=== PATIENT | male | born 1975 | race African-American/Black ===

== ENCOUNTER 2018-06-29 12:02 | Emergency (ER) | payer OTHER ==
--- OUTSIDE RECORDS SUMMARY | 2018-06-29 12:11 | XMS REPORT ---
:1975 External Reference #:[id number] Author Organization [facility] Address [address] [place] [address] [place] [address] Phone [phone] Care Team Providers Name Role Phone Kong Mcnulty III, MD Primary Care Physician Unavailable Payers Type Date Identification Numbers Payment Provider Subscriber Commercial Policy Number: [id number] Ru[employer] Camila Box III Medicaid PayID: [id number] [place] [id number] Advance Directives Type Date Description Status Comment Other Directive 06/04/2018 Health Care Proxy Current and Verified Problems Date Description Provider Status Onset: 09/27/2017 Tobacco user Bradford Rivas M.D. Active Onset: 09/27/2017 Low back pain Bradford Rvias M.D. Active Onset: 09/27/2017 Osteoarthritis of knee, unspecified Bradford Rivas M.D. Active Onset: 09/27/2017 Obesity Bradford Rivas M.D. Active Onset: 02/12/2018 Mild recurrent major depression Bradford Rivas M.D. Active Onset: 02/12/2018 Insomnia Bradford Rivas M.D. Active Onset: 03/05/2018 Knee pain Bradford Rivas M.D. Active Onset: 03/07/2018 Localized, primary osteoarthritis Lon Gonzalez MD Active Onset: 03/07/2018 Sciatica Lon Gonzalez MD Active Family History Date Family Member(s) Problem(s) Comments General Heart Disease Father Diabetes Type II Mother Hyperthyroidism Social History Type Date Description Comments Lives With Girlfriend Occupation Currently Working ETOH Use Denies alcohol use Smoking current smoker 1 ppd Exercise Type/Frequency Does not exercise Allergies, Adverse Reactions, Alerts Date Description Reaction Status Severity Comments 12/11/2013 NKDA active Medications Medication Date Status Form Strength Qnty SIG Indications Ordering Provider Sertraline HCL 06/04/20 Active Tablets 100mg 30tabs 1 by F33.0 Bradford 18 mouth Pachikara, every day M.D. Tramadol HCL 03/05/20 Active Tablets 50mg 20tabs 2 times a M25.561 [place] 18 day as Pachikara, needed M.D. Ibuprofen 02/13/20 Active Tablets 600mg 90tabs three M25.561 Bradford 18 times a Pachikara, day with M.D. food Sertraline HCL 02/13/20 Hx Tablets 50mg 30tabs 1 by F33.0 Bradford 18 - mouth Pachikara, 06/04/20 every day M.D. 18 [place] Hx Unknown - 06/03/20 18 Medications Administered in Office Medication Date Status Form Strength Qnty SIG Indications Ordering Provider Depomedrol Administered Injection Luzma 40MG 018 MOLLY Stern Immunizations CPT Code Status Date Vaccine Lot # [id number] Given 05/14/2018 Pneumonia Vaccine [id number] Vital Signs Date Vital Result Comment 06/11/2018 Height 70 inches 5'10" Heart Rate 68 /min BP Systolic 130 mmHg BP Diastolic 82 mmHg Respiratory Rate 18 /min Body Temperature 98.7 F Pain Level 7 06/04/2018 Height 70 inches 5'10" Weight 253.00 lb Heart Rate 84 /min BP Systolic 135 mmHg BP Diastolic 90 mmHg Pain Level 8 lower back, bilat knees O2 % BldC Oximetry 98 % BMI (Body Mass Index) 36.3 kg/m2 05/14/2018 Height 70 inches 5'10" Weight 253.00 lb Heart Rate 80 /min BP Systolic 140 mmHg BP Diastolic 90 mmHg O2 % BldC Oximetry 97 % BMI (Body Mass Index) 36.3 kg/m2 05/07/2018 Height 70 inches 5'10" Weight 260.00 lb Heart Rate 72 /min BP Systolic 142 mmHg BP Diastolic 80 mmHg Respiratory Rate 14 /min Pain Level 6 BMI (Body Mass Index) 37.3 kg/m2 03/07/2018 Height 70 inches 5'10" Weight 270.00 lb BP Systolic 124 mmHg BP Diastolic 81 mmHg Respiratory Rate 16 /min Pain Level 9 BMI (Body Mass Index) 38.7 kg/m2 03/05/2018 Height 70 inches 5'10" Weight 270.00 lb Heart Rate 88 /min BP Systolic 122 mmHg BP Diastolic 80 mmHg O2 % BldC Oximetry 96 % BMI (Body Mass Index) 38.7 kg/m2 02/12/2018 Weight 267.00 lb Heart Rate 78 /min BP Systolic 130 mmHg BP Diastolic 82 mmHg Body Temperature 97.9 F O2 % BldC Oximetry 98 % 09/27/2017 Height 70 inches 5'10" Weight 266.38 lb Heart Rate 81 /min BP Systolic 132 mmHg BP Diastolic 85 mmHg O2 % BldC Oximetry 97 % BMI (Body Mass Index) 38.2 kg/m2 12/11/2013 Height 70 inches 5'10" Weight 142.00 lb Heart Rate 76 /min BP Systolic 127 mmHg BP Diastolic 79 mmHg BMI (Body Mass Index) 20.4 kg/m2 Results Test Date Test Result H/L Range Note Comp Metabolic Panel 03/04/2018 Sodium 140 mmol/L 139-145 Potassium 4.6 mmol/L 3.5-5.0 Chloride 103 mmol/L 101-111 Co2 Carbon Dioxide 30 mmol/L 22-32 Anion Gap 7 mmol/L 2-11 Glucose 94 mg/dL 70-100 Blood Urea Nitrogen 18 mg/dL 6-24 Creatinine 1.07 mg/dL 0.67-1.17 BUN/Creatinine Ratio 16.8 8-20 Calcium 9.5 mg/dL 8.6-10.3 Total Protein 7.2 g/dL 6.4-8.9 Albumin 4.4 g/dL 3.2-5.2 Globulin 2.8 g/dL 2-4 Albumin/Globulin Ratio 1.6 1-3 Total Bilirubin 0.60 mg/dL 0.2-1.0 Alkaline Phosphatase 75 U/L 34-104 Alt 21 U/L 7-52 Ast 16 U/L 13-39 Egfr Non- 76.5 >60 Egfr 98.4 >60 1 Laboratory test finding 03/04/2018 TSH (Thyroid Stim Horm) 2.56 mcIU/mL 0.34-5.60 Lipid Profile 03/04/2018 Triglycerides 162 mg/dL 2 (Trig/Chol/HDL) Cholesterol 231 mg/dL 3 HDL Cholesterol 41.5 mg/dL 4 LDL Cholesterol 157 mg/dL 5 1 Because ethnic data is not always readily available, this report includes an eGFR for both -Americans and non- Americans. The National Kidney Disease Education Program (NKDEP) does not endorse the use of the MDRD equation for patients that are not between the ages of 18 and 70, are , have extremes of body size, muscle mass, or nutritional status, or are non- or non-. According to the National Kidney Foundation, irrespective of diagnosis, the stage of the disease is based on the level of kidney function: Stage Description GFR(mL/min/1.73 m(2)) 1 Kidney damage with normal or decreased GFR 90 2 Kidney damage with mild decrease in GFR 60-89 3 Moderate decrease in GFR 30-59 4 Severe decrease in GFR 15-29 5 Kidney failure <15 (or dialysis) 2 Desirable: <150 Borderline High: 150-199 High: 200-499 Very High: >500 3 Desirable: <200 Borderline High: 200-239 High: >239 4 Low: <40 Desirable: 40-60 High: >60 5 Desirable: <100 Near Optimal: 100-129 Borderline High: 130-159 High: 160-189 Very High: >189 Procedures Date CPT Code Description Status 03/07/2018 87193 Inject/Drain Joint/Bursa Major W/O US Completed Encounters Type Date Location Provider CPT E/M Dx Office Visit 06/04/2018 8:00a [facility] Bradford Rivas [address] F33.0 - [place] M25.561 Office Visit 05/14/2018 8:00a [facility] Internal Bradford Rivas M.D. 98295 F33.0 Medicine - [place] E66.9 Office Visit 05/07/2018 10:30a [facility] [place] [address] S83.241D Of Shyann Gonzalez MD M25.561 Office Visit 03/07/2018 8:45a [facility] Lon Gonzalez, 80129 M17.11 Shyann WHITE M54.41 Office Visit 03/05/2018 8:20a [facility] Hetal Rivas 53026 M25.561 Medicine - [place] F33.0 Office Visit 02/12/2018 8:40a [facility] Internal Bradford Rivas, 16094 M25.561 Medicine - [place] M54.5 F33.0 G47.00 F17.210 Z13.220 Office Visit 09/27/2017 1:00p [facility] Internal Bradford Rivas, 82511 Z00.01 Medicine - [place] F17.210 M54.5 M17.9 E66.9 Z68.38 Z00.00 Office Visit 12/11/2013 2:00p [facility], [address]682 717.7 C.M.A. M.Joanne. 719.46 Plan of Care Future Appointment(s):07/05/2018 8:00 am - Bradford Rivas M.D. at [facility] - [address]/11/2018 - Lon Gonzalez, MDM25.561 Pain in right kneeNew Xrays:MRI Knee Right W/OFollow up:Follow up: after MRI
--- OUTSIDE RECORDS SUMMARY | 2018-06-29 12:11 | XMS REPORT ---
:1975 External Reference #:[id number] Author Organization [facility] Address [address] [place] [address] [place] [address] Phone [phone] Care Team Providers Name Role Phone Kong Mcnulty III, MD Primary Care Physician Unavailable Payers Type Date Identification Numbers Payment Provider Subscriber Commercial Policy Number: [id number] [employer] Camila Box III Medicaid PayID: [id number] [place] [address] Advance Directives Type Date Description Status Comment Other Directive 06/04/2018 Health Care Proxy Current and Verified Problems Date Description Provider Status Onset: 09/27/2017 Tobacco user Bradford Rivas M.D. Active Onset: 09/27/2017 Low back pain Bradford Rivas M.D. Active Onset: 09/27/2017 Osteoarthritis of knee, unspecified Bradford Rivas M.D. Active Onset: 09/27/2017 Obesity Bradford Rivas M.D. Active Onset: 02/12/2018 Mild recurrent major depression Bradford Rivas M.D. Active Onset: 02/12/2018 Insomnia Bradford Rivas M.D. Active Onset: 03/05/2018 Knee pain Bradford Rivas M.D. Active Onset: 03/07/2018 Localized, primary osteoarthritis Lno Gonzalez MD Active Onset: 03/07/2018 Sciatica Lon [...] Tablets 50mg 20tabs 2 times a M25.561 [place] 18 day as Pachikara, needed M.D. Ibuprofen 02/13/20 Active Tablets 600mg 90tabs three M25.561 Bradford 18 times a Pachikara, day with M.D. food Sertraline HCL 02/13/20 Hx Tablets 50mg 30tabs 1 by F33.0 Bradford 18 - mouth Pachikara, 06/04/20 every day M.D. 18 [place] Hx Unknown - 06/03/20 18 Medications Administered in Office Medication Date Status Form Strength Qnty SIG Indications Ordering Provider Depomedrol Administered Injection Luzma 40MG 018 MOLLY Stern Immunizations CPT Code Status Date Vaccine Lot # [id number] Given 05/14/2018 Pneumonia Vaccine [id number] Vital Signs Date Vital Result Comment 06/04/2018 Height 70 inches 5'10" Weight 253.00 [...] Procedures Date CPT Code Description Status 03/07/2018 42080 Inject/Drain Joint/Bursa Major W/O US Completed Encounters Type Date Location Provider CPT E/M Dx Office Visit 05/14/2018 8:00a [facility] Bradford Rivas, [address]145 F33.0 - [place] E66.9 Office Visit 05/07/2018 10:30a [facility] [place] [address]47[address] S83.241D Of Shyann Gonzalez MD M25.561 Office Visit 03/07/2018 8:45a [facility] Lon Gonzalez, 82876 M17.11 Shyann WHITE M54.41 Office Visit 03/05/2018 8:20a [facility] Internal Bradford Rivas 65708 M25.561 Medicine - [place] F33.0 Office Visit 02/12/2018 8:40a [facility] Internal Bradford Rivas 93256 M25.561 Medicine - [place] M54.5 F33.0 G47.00 F17.210 Z13.220 Office Visit 09/27/2017 1:00p [facility] Internal Bradford Rivas 87403 Z00.01 Medicine - [place] F17.210 M54.5 M17.9 E66.9 Z68.38 Z00.00 Office Visit 12/11/2013 2:00p [facility], 27357 717.7 C.M.A. Bunny 719.46 Plan of Care Future Appointment(s):07/05/2018 8:00 am - Bradford Rivas M.D. at [facility] - [address]/04/2018 - Bradford Rivas M.D.F33.0 Major depressive disorder, recurrent, mildNew Medication:Sertraline HCL 100 mgComments :Your symptoms are slowly improving. Increase setraline to 100mg dailyFollow up: 1 month/ Need records from Dr Schmitz [facility]25.561 Pain in right kneeComments: Continue Ibuprofen. ~B_Use tramadol for only severe pain~b_
[2018-06-29 12:13] VITALS: BP 153/91
[2018-06-29] MEDS ORDERED: Eye Irrigation Solution 30 ML BOTTLE RIGHT EYE ONE (12:39)
--- NOTE | 2018-06-29 12:42 | UC ---
Eye Complaint HPI - HPI Summary HPI Summary: Pt presents with c/o of right eye irritation and redness X 3 days. Pt denies having FB in eye or risk for FB. Pt states that ezequiel feels itchy and as though a " sharp splinter" is in the inner corner of right eye when he rubs the eye. - History of Current Complaint Chief Complaint: UCEye Stated Complaint: EYE ISSUE Time Seen by Provider: 06/29/18 12:32 Hx Obtained From: Patient Onset/Duration: Sudden Onset, Lasting Days, Still Present Timing: Constant Severity Initially: Mild Severity Currently: Mild Pain Intensity: 8 Character: Sharp, Foreign Body Sensation Aggravating Factor(s): Other - rubbing eye Alleviating Factor(s): Nothing Associated Signs And Symptoms: Positive: Drainage (Clear) - Risk Factors Penetrating Injury Risk Factor: Negative Globe Rupture Risk Factors: Negative Acute Glaucoma Risk Factors: Negative Optic Artery Occlusion Risk Factors: Negative - Allergies/Home Medications Allergies/Adverse Reactions: Allergies Allergy/AdvReac Type Severity Reaction Status Date / Time No Known Allergies Allergy Verified 06/29/18 12:14 Home Medications: Home Medications Sertraline* [Zoloft*] 50 mg PO DAILY 06/29/18 [History Confirmed 06/29/18] Tramadol HCl 50 mg PO DAILY 06/29/18 [History Confirmed 06/29/18] PMH/Surg Hx/FS Hx/Imm Hx Previously Healthy: Yes - Surgical History Surgical History: Yes Surgery Procedure, Year, and Place: GALL BLADDER - Family History Known Family History: Positive: Cardiac Disease - Social History Occupation: Employed Full-time Lives: With Family Alcohol Use: None Substance Use Type: None Smoking Status (MU): Current Every Day Smoker Type: Cigarettes Amount Used/How Often: 1ppd Have You Smoked in the Last Year: Yes Household Exposure Type: Cigarettes Review of Systems Constitutional: Negative Skin: Negative Eyes: Blurred Vision, Drainage, Eye Redness ENT: Negative Respiratory: Negative Cardiovascular: Negative Gastrointestinal: Negative Genitourinary: Negative Motor: Negative Neurovascular: Negative Musculoskeletal: Negative Neurological: Negative Psychological: Negative Is Patient Immunocompromised?: No All Other Systems Reviewed And Are Negative: Yes Physical Exam Triage Information Reviewed: Yes Appearance: Well-Appearing Vital Signs: Initial Vital Signs Temp 98 F 06/29/18 12:11 Pulse 88 06/29/18 12:11 Resp 16 06/29/18 12:11 BP 153/91 06/29/18 12:11 Pulse Ox 100 06/29/18 12:11 Vital Signs Reviewed: Yes Eyes: Positive: Conjunctiva Clear, Other: - scleritis, no FB visualized ENT Exam: Normal Dental Exam: Normal Neck exam: Normal Respiratory Exam: Normal Respiratory: Positive: No respiratory distress Musculoskeletal Exam: Normal Neurological Exam: Normal Psychological Exam: Normal Skin Exam: Normal Eye Complaint Course/Dx - Differential Dx/Diagnosis Differential Diagnosis/HQI/PQRI: Conjunctivitis, Corneal Abrasion, Foreign Body Provider Diagnoses: conjunctivitis Discharge - Sign-Out/Discharge Documenting (check all that apply): Patient Departure - Discharge Plan Condition: Stable Disposition: HOME Prescriptions: Polymyx/Trimethoprim OPTH* [Polytrim OPHTH*] 2 drop RIGHT EYE Q8H 7 Days #1 btl Patient Education Materials: Conjunctivitis (ED) Referrals: [facility] [Outside] - If Needed No Primary Care Phys,NOPCP [Primary Care Provider] - Itz Manley MD [Medical Doctor] - If Needed - Billing Disposition and Condition Condition: STABLE Disposition: Home Attestation Statement User Type: Provider - I was available for consult. This patient was seen by the SARAY. The patient was not presented to, seen by, or examined by me. -Howie
== END 2018-06-29 12:56 | disposition home or self-care (01) ==
LOC: UCEAST 12:02
DX: H10.9 Unspecified conjunctivitis (principal); F17.210 Nicotine dependence, cigarettes, uncomplicated
CPT/HCPCS: 99212; G0463

== ENCOUNTER 2018-07-26 10:06 | Emergency (ER) | payer OTHER ==
--- NOTE | 2018-07-26 10:40 | ED ---
Lower Extremity - HPI Summary HPI Summary: This patient is a 42 year old M presenting to [facility] with a chief complaint of LLE pain. Pt dropped a box on his foot 2 days ago while at work and states the pain is not resolving. The patient rates the pain 9/10 in severity. Symptoms alleviated by iburprofen 600 mg. Patient denies trouble ambulating and fever. - History of Current Complaint Chief Complaint: EDExtremityLower Stated Complaint: LT FOOT PAIN Time Seen by Provider: 07/26/18 10:20 Hx Obtained From: Patient Mechanism Of Injury: Blunt Trauma Onset of Pain: Immediate Onset/Duration: Days - 2 Severity Initially: Moderate Severity Currently: Moderate Pain Intensity: 9 Pain Scale Used: 0-10 Numeric Timing: Constant Location: Is Discrete @ - LLE Aggravating Factor(s): Ambulation Able to Bear Weight: Yes Related History: Occupational Injury - Allergies/Home Medications Allergies/Adverse Reactions: Allergies Allergy/AdvReac Type Severity Reaction Status Date / Time No Known Allergies Allergy Verified 07/26/18 10:43 Home Medications: Home Medications Ibuprofen 600 mg PO DAILY 07/26/18 [History Confirmed 07/26/18] PMH/Surg Hx/FS Hx/Imm Hx Endocrine/Hematology History: Denies: Hx Diabetes, Hx Thyroid Disease Cardiovascular History: Reports: Hx Hypertension Denies: Hx Pacemaker/ICD Respiratory History: Denies: Hx Asthma, Hx Chronic Obstructive Pulmonary Disease (COPD) GI History: Denies: Hx Ulcer History: Denies: Hx Renal Disease Sensory History: Denies: Hx Hearing Aid Psychiatric History: Denies: Hx Panic Disorder - Surgical History Surgery Procedure, Year, and Place: GALL BLADDER Infectious Disease History: Reports: Hx Tuberculosis - Reaction to PPD, negative chest x-ray Denies: Hx Clostridium Difficile, Hx Hepatitis, Hx Human Immunodeficiency Virus (HIV), Hx of Known/Suspected MRSA, Hx Shingles - Family History Known Family History: Positive: Cardiac Disease - Social History Alcohol Use: None Substance Use Type: Reports: None Smoking Status (MU): Current Every Day Smoker Type: Cigarettes Amount Used/How Often: 1ppd Have You Smoked in the Last Year: Yes Review of Systems Negative: Fever Positive: Other - LLE All Other Systems Reviewed And Are Negative: Yes Physical Exam - Summary Physical Exam Summary: VITAL SIGNS: Reviewed. GENERAL: Patient is a well-developed and nourished male who is lying comfortable in the stretcher. Patient is not in any acute respiratory distress. HEAD AND FACE: No signs of trauma. No ecchymosis, hematomas or skull depressions. No sinus tenderness. EYES: PERRLA, EOMI x 2, No injected conjunctiva, no nystagmus. EARS: Hearing grossly intact. Ear canals and tympanic membranes are within normal limits. MOUTH: Oropharynx within normal limits. NECK: Supple, trachea is midline, no adenopathy, no JVD, no carotid bruit, no c- spine tenderness, neck with full ROM. CHEST: Symmetric, no tenderness at palpation LUNGS: Clear to auscultation bilaterally. No wheezing or crackles. CVS: Regular rate and rhythm, S1 and S2 present, no murmurs or gallops appreciated. ABDOMEN: Soft, non-tender. No signs of distention. No rebound no guarding, and no masses palpated. Bowel sounds are normal. EXTREMITIES: TTP lateral aspect of the 5th metatarsal area NEURO: Alert and oriented x 3. No acute neurological deficits. Speech is normal and follows commands. SKIN: Dry and warm Triage Information Reviewed: Yes Vital Signs Reviewed: Yes Diagnostics - Laboratory Lab Statement: Any lab studies that have been ordered have been reviewed, and results considered in the medical decision making process. - Radiology Foot Xray Radiology Interpretation Completed By: Radiologist - NO ACUTE OSSEOUS INJURY. IF SYMPTOMS PERSIST, RECOMMEND REPEAT IMAGING. Dr. Bernstein has reviewed this report Lower Extremity Course/Dx - Course Assessment/Plan: 42-year-old male with a chief complaint of left foot pain. X- ray of the foot negative for acute fracture dislocation. The patient will be discharged home with follow with primary care physician. He was recommended to take ibuprofen or Tylenol for the pain. The patient is ambulating out of the emergency room. - Diagnoses Provider Diagnoses: Foot sprain Discharge - Sign-Out/Discharge Documenting (check all that apply): Patient Departure - Discharge Plan Condition: Stable Disposition: HOME Patient Education Materials: Foot Sprain (ED) Referrals: Bradford Rivas MD [Primary Care Provider] - 2 Days Additional Instructions: RETURN TO THE EMERGENCY DEPARTMENT FOR CHANGING OR WORSENING SYMPTOMS. FOLLOW UP WITH PCP IN 1-2 DAYS. - Billing Disposition and Condition Condition: STABLE Disposition: Home - Attestation Statements Document Initiated by Lionelibe: Yes Documenting Scribe: Ivan Li Provider For Whom Scribe is Documenting (Include Credential): Kong Bernstein MD Scribe Attestation: I, Ivan Li , scribed for Kong Bernstein MD on 07/26/18 at 1227. Scribe Documentation Reviewed: Yes Provider Attestation: The documentation as recorded by the lionelibeIvan accurately reflects the service I personally performed and the decisions made by me, Kogn Bernstein MD
--- NOTE | 2018-07-26 11:54 | RAD ---
HISTORY: INJURY, left foot injury COMPARISONS: None VIEWS: 3 , Frontal, lateral, and oblique views of the left foot FINDINGS: BONE DENSITY: Normal. BONES: There is no displaced fracture. JOINTS: There is no arthropathy. ALIGNMENT: There is no dislocation. SOFT TISSUES: Unremarkable. OTHER FINDINGS: None. IMPRESSION: NO ACUTE OSSEOUS INJURY. IF SYMPTOMS PERSIST, RECOMMEND REPEAT IMAGING.
[2018-07-26 12:11] VITALS: BP 142/80
== END 2018-07-26 12:10 | disposition home or self-care (01) ==
LOC: ED 10:06
DX: S93.602A Unspecified sprain of left foot, initial encounter (principal); I10 Essential (primary) hypertension; F17.210 Nicotine dependence, cigarettes, uncomplicated; W20.8XXA Other cause of strike by thrown, projected or falling object, initial encounter; Y92.9 Unspecified place or not applicable
CPT/HCPCS: 99282

== ENCOUNTER 2019-05-06 10:56 | Emergency (ER) | payer OTHER ==
[2019-05-06 11:01] VITALS: BP 158/103
[2019-05-06] MEDS ORDERED: Fluorescein Sodium TOPICAL* 1 MG TEST STRIP ONE (11:11)
[2019-05-06] MEDS ORDERED: Tetracaine 0.5% OPTH.SOL 4 ML* 1 DROP BTL ONE (11:11)
--- NOTE | 2019-05-06 11:14 | ED ---
Throat Pain/Nasal Congestion - HPI Summary HPI Summary: This pt is a 43 y/o male presenting to [facility] c/o left eye pain s/p son accidentally poked his left eye with his fingernail yesterday. Pt reports his son was trying to help him get a shirt out of the closet when he reached up and poked the pt in the eye with his fingernail. Pt states left eye is teary, burning, and left eye blurry vision. He notes he feels like there is a foreign body in his left eye. Pt reports he placed Visine on left eye without relief yesterday. He currently rates his left eye pain 10/10 in severity. Pt does not wear glasses. Pt works driving a cab. He denies any PMHx. - History of Current Complaint Chief Complaint: EDEyeProblem Time Seen by Provider: 05/06/19 11:07 Hx Obtained From: Patient Onset/Duration: Lasting Days - 1, Still Present Severity: Severe - 10/10 pain Associated Signs And Symptoms: Positive: FB Sensation - on left eye Cough: None Related History: Other (Noted In Comments) - s/p son poked him with finger in his left eye - Allergies/Home Medications Allergies/Adverse Reactions: Allergies Allergy/AdvReac Type Severity Reaction Status Date / Time No Known Allergies Allergy Verified 05/06/19 10:59 PMH/Surg Hx/FS Hx/Imm Hx Endocrine/Hematology History: Denies: Hx Diabetes, Hx Thyroid Disease Cardiovascular History: Reports: Hx Hypertension Denies: Hx Pacemaker/ICD Respiratory History: Denies: Hx Asthma, Hx Chronic Obstructive Pulmonary Disease (COPD) GI History: Denies: Hx Ulcer History: Denies: Hx Renal Disease Sensory History: Denies: Hx Contacts or Glasses, Hx Hearing Aid Opthamlomology History: Denies: Hx Contacts or Glasses Psychiatric History: Denies: Hx Panic Disorder - Surgical History Surgical History: Yes Surgery Procedure, Year, and Place: GALLBLADDER Infectious Disease History: No Infectious Disease History: Reports: Hx Tuberculosis - Reaction to PPD, negative chest x-ray Denies: Hx Clostridium Difficile, Hx Hepatitis, Hx Human Immunodeficiency Virus (HIV), Hx of Known/Suspected MRSA, Hx Shingles, Traveled Outside the [place] in Last 30 Days - Family History Known Family History: Positive: Cardiac Disease - Social History Alcohol Use: None Substance Use Type: Reports: Marijuana Smoking Status (MU): Current Every Day Smoker Type: Cigarettes Amount Used/How Often: 1ppd Have You Smoked in the Last Year: Yes Review of Systems Negative: Fever, Chills Eyes: Other - POSITIVE: left eye pain, left eye teary Positive: Blurred Vision - Left Cardiovascular: Negative Respiratory: Negative Gastrointestinal: Negative All Other Systems Reviewed And Are Negative: Yes Physical Exam - Summary Physical Exam Summary: VITAL SIGNS: Reviewed. GENERAL: Patient is a well-developed and nourished male who is lying comfortable in the stretcher. Patient is not in any acute respiratory distress. HEAD AND FACE: No signs of trauma. No ecchymosis, hematomas or skull depressions. No sinus tenderness. EYES: PERRLA, EOMI x 2, Right eye: no injected conjunctiva. Left eye: injected conjunctiva. No foreign body. Fluorescein uptake at 5 and 6 o'clock. EARS: Hearing grossly intact. Ear canals and tympanic membranes are within normal limits. MOUTH: Oropharynx within normal limits. NECK: Supple, trachea is midline, no adenopathy, no JVD, no carotid bruit, no c- spine tenderness, neck with full ROM. CHEST: Symmetric, no tenderness at palpation LUNGS: Clear to auscultation bilaterally. No wheezing or crackles. CVS: Regular rate and rhythm, S1 and S2 present, no murmurs or gallops appreciated. ABDOMEN: Soft, non-tender. No signs of distention. No rebound, no guarding, and no masses palpated. Bowel sounds are normal. EXTREMITIES: FROM in all major joints, no edema, no cyanosis or clubbing. NEURO: Alert and oriented x 3. No acute neurological deficits. Speech is normal and follows commands. SKIN: Dry and warm Triage Information Reviewed: Yes Vital Signs On Initial Exam: Initial Vitals Temp Pulse Resp BP Pulse Ox 97.9 F 86 16 158/103 97 05/06/19 10:58 05/06/19 10:58 05/06/19 10:58 05/06/19 10:58 05/06/19 10:58 Vital Signs Reviewed: Yes Diagnostics - Vital Signs Vital Signs Temp Pulse Resp BP Pulse Ox 05/06/19 10:58 97.9 F 86 16 158/103 97 - Laboratory Lab Statement: Any lab studies that have been ordered have been reviewed, and results considered in the medical decision making process. EENT Course/Dx - Course Assessment/Plan: Pt is a 43 y/o male who presents to the ED with left eye pain s /p son accidentally poked his left eye with his fingernail yesterday. Pt reports his son was trying to help him get a shirt out of the closet when he reached up and poked the pt in the eye with his fingernail. Pt states left eye is teary, burning, and left eye blurry vision. He notes he feels like there is a foreign body in his left eye. He currently rates his left eye pain 10/10 in severity. Tetracaine was placed on left eye. On exam, left eye with injected conjunctiva and positive fluorescein uptake at 5 and 6 o'clock. No foreign body seen. Right eye is normal. Pt will be discharged home with follow up from ophthalmology in 2-3 days. He was given prescriptions for Erythromycin ointment and Tylenol/Codeine. Pt was also given instructions to return to the ED for any worsening or new symptoms. - Diagnoses Provider Diagnoses: Corneal abrasion Discharge - Sign-Out/Discharge Documenting (check all that apply): Patient Departure - Discharge home Patient Received Moderate/Deep Sedation with Procedure: No - Discharge Plan Condition: Stable Disposition: HOME Prescriptions: Acetaminop/Codeine 30 MG TAB* [Tylenol/Codeine 30 MG TAB*] 1 tab PO Q8H PRN #10 tab MDD 4 PRN Reason: Pain Erythromycin OPHTH.OINT* [Ilotycin OPHTH.OINT*] 1 applic LEFT EYE TID #1 tube Patient Education Materials: Corneal Abrasion (ED) Forms: *Work Release Referrals: Bradford Rivas MD [Primary Care Provider] - Aman Sutton MD [Medical Doctor] - Additional Instructions: FOLLOW UP WITH DR. SUTTON, [facility] [employer]. RETURN TO THE ED FOR ANY NEW OR WORSENING SYMPTOMS. - Attestation Statements Document Initiated by Scribe: Yes Documenting Scribe: Joseline Cantu Provider For Whom Scribe is Documenting (Include Credential): Kong Bernstein MD Scribe Attestation: Joseline Story, scribed for Kong Bernstein MD on 05/06/19 at 1137. Status of Scribe Document: Ready
[2019-05-06] MEDS ORDERED: Fluorescein Sodium TOPICAL* 1 MG TEST STRIP OPHTHALMIC ONE (11:18)
[2019-05-06] MEDS ORDERED: Tetracaine 0.5% OPTH.SOL 4 ML* 1 DROP BTL LEFT EYE ONE (11:18)
[2019-05-06] MEDS ORDERED: Erythromycin OPTH OINT* APPLIC OINT LEFT EYE SCH (14:00)
== END 2019-05-06 11:35 | disposition home or self-care (01) ==
LOC: ED 10:56
DX: S05.02XA Injury of conjunctiva and corneal abrasion without foreign body, left eye, initial encounter (principal); W50.0XXA Accidental hit or strike by another person, initial encounter; F17.210 Nicotine dependence, cigarettes, uncomplicated
CPT/HCPCS: 99282; A9270-GY